=== PATIENT | male | born 1950 | race Caucasian/White ===

== ENCOUNTER 2018-08-01 23:38 | Emergency (ER) | payer OTHER ==
[~2018-08-01] VITALS: Ht 185.4 cm; Wt 114.3 kg
[2018-08-01 23:53] VITALS: BP_SYST 100
--- NOTE | 2018-08-01 23:55 | NUR ---
Pt called in x 3. Patient left without being seen. No further treatment provided. ER aware
--- NOTE | 2018-08-02 00:40 | NUR ---
Note yuri in ED - 08/02/18 at 0042 by [email or web address] Patient to [place] [id number] to aime for evaluation. Side rails up. Report given to NAVNEET Aguilar.
== END 2018-08-01 23:55 | disposition left against medical advice (07) ==
LOC: SED 23:38
DX: R41.82 Altered mental status, unspecified (principal); Z53.21 Procedure and treatment not carried out due to patient leaving prior to being seen by health care provider